=== PATIENT | male | born 1965 | race Caucasian/White ===

== ENCOUNTER 2017-08-09 08:56 | Day surgery (SDC) | payer OTHER ==
[~2017-08-09 08:56] MED LIST: LIDOCAINE HCL 1% MPF SOL ONE; PROPOFOL 500 MG/50 ML EMU IV ONE
[2017-08-09] MEDS ORDERED: PROPOFOL 10 MG/ML EMU IV ONE (11:25)
[2017-08-09 11:33] VITALS: TEMP 97.8
[2017-08-09 11:55] VITALS: BP 113/73; PULSE 68; RESP 20; O2SAT 99
== END 2017-08-09 12:20 | disposition home or self-care (01) | DRG 951 ==
LOC: SURG 08:56
PROVIDERS: ATTEND Internal Medicine Gastroenterology
DX: Z12.11 Encounter for screening for malignant neoplasm of colon (principal); D12.0 Benign neoplasm of cecum; Z80.0 Family history of malignant neoplasm of digestive organs; Z83.71 Family history of colonic polyps; K57.30 Diverticulosis of large intestine without perforation or abscess without bleeding; K64.8 Other hemorrhoids; D12.2 Benign neoplasm of ascending colon; K63.5 Polyp of colon; D12.5 Benign neoplasm of sigmoid colon
CPT/HCPCS: 99001; J2001; J2704